=== PATIENT | male | born 1945 ===

== ENCOUNTER 2024-12-28 09:53 | Emergency (ER) | payer MEDICAID, SELFPAY ==
--- NOTE | ~2024-12-28 | XR_ITS ---
EXAMINATION: XR WRIST, RIGHT CLINICAL INFORMATION: right wrist swelling and redness COMPARISON: None available. TECHNIQUE: PA, lateral, oblique, and scaphoid views of the right wrist. FINDINGS: There are marginal osteophytes involving the first, second, and third MCP joints. There is no joint diastases. No fracture is evident. There is mild ulnar minus variance. XR/XR wrist RT 2V IMPRESSION: Unremarkable right wrist. 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 Electronically signed by: Jose Corona MD 12/28/2024 10:58 AM EDT
[2024-12-28 10:15] VITALS: BP 197/87; PULSE 86; RESP 18; TEMP 36.8; O2SAT 97; BMI 29.6
--- NOTE | 2024-12-28 10:15 | ED.GENADULT ---
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 Woke with right wrist pain/swelling/redness this morning. No known injury or trauma. Does have a small abrasion to right elbow which he reports happened >1 week ago. Denies fevers, chills, numbness, tingling, vomiting or diarrhea. Related Data Previous Rx's ?Medication ?Instructions ?Recorded cephalexin 500 mg capsule 500 mg PO BID #14 caps 12/28/24 prednisone 20 mg tablet 40 mg (2 x 20 mg) PO DAILY #10 tabs 12/28/24 Allergies Allergy/AdvReac Type Severity Reaction Status Date / Time No Known Allergies Allergy Verified 12/28/24 10:17 Review of Systems Review of Systems: Yes all other systems are reviewed and are negative Constitutional: Constitutional: Reports no additional constitutional complaints, Reports body ache(s), Denies chills, Denies fever(s), Denies headache(s) and Denies weakness Eyes: Eyes: Reports no additional eye complaints and Denies change in vision ENT: Reports system reviewed and no additional complaints, except as documented, Denies dizziness, Denies headache(s), Denies nasal congestion, Denies nasal discharge and Denies neck pain Cardiovascular: Cardiovascular: Reports no additional cardiovascular complaints, Denies chest pain, Denies leg edema and Denies dyspnea Respiratory: Respiratory: Reports no additional respiratory complaints, Denies cough and Denies dyspnea Gastrointestinal: Gastrointestinal: Reports no additional gastrointestinal complaints, Denies abdominal pain, Denies diarrhea, Denies nausea and Denies vomiting Genitourinary: Genitourinary: Denies urinary incontinence Musculoskeletal: Musculoskeletal: Reports no additional musculoskeletal complaints, Denies back pain, Reports arthralgias, Reports joint swelling, Denies limited range of motion, Denies neck pain, Denies numbness and Denies tingling Integumentary/Breasts: Skin/Breast: Reports system reviewed and no additional complaints, except as docu, Reports swelling, Reports erythema and Denies rash Neurologic: Reports system reviewed and no additional complaints, except as documented, Denies Abnormal speech present, Denies dizziness, Denies headache(s), Denies numbness, Denies tingling and Denies weakness [facility] Past Medical History Attestation statement: The following information was validated with the patient. Source: old records reviewed and nursing notes reviewed Physical Exam ED Vital Signs: Vital Signs - 24 hr 12/28/24 10:15 Temperature 98.2 F Pulse Rate 86 Respiratory Rate 18 Blood Pressure 197/87 H Pulse Oximetry 97 Oxygen Delivery Method Room Air BMI result Body Mass Index 29.6 Const General: cooperative, healthy appearing, comfortable and no acute distress Orientation/consciousness: patient oriented x3 Limitations: no limitations HENMT Head: Yes normal to inspection Ears: hearing grossly normal bilaterally General nose exam: Normal external nose present Face and sinus: Yes normal facial exam Mouth: Normal oral and palatal mucosa present Throat: Yes posterior oropharynx normal Eyes General: appearance normal, both eyes and all related structures Pupils: Equal, round and reactive pupils present Neck Neck: Yes normal visual inspection Chest Chest palpation & inspection: normal inspection of the chest Resp Effort & Inspection: normal respiratory effort Auscultation: clear to auscultation bilaterally Cardio Rate: regular rate Rhythm: regular rhythm Peripheral pulses: Peripheral pulses 2+ throughout GI Inspection: Yes normal to inspection Palpation (GI): Soft to palpation and nontender Auscultation: normal bowel sounds Back/Spine/Pelvis Thoracic/Lumbar Spine: thoracic and lumbar spine normal to inspection Skin General skin exam: no rashes or lesions noted Neuro General: patient oriented x3, no focal motor deficits and normal sensation to monofilament Cranial nerves: Yes Equal, round and reactive pupils present Cognition (Neuro): normal cognition Speech: No Abnormal speech present Gait exam (Neuro): Normal gait present Motor exam (neuro): 5/5 motor strength present throughout Extrem Other: FROM of the right wrist. No circumferential redness or swelling. small abrasion to right lateral elbow. CMS intact distally. Right knee normal appearance. No swelling or redness with FROM. General: Yes normal to inspection Course Course Course Narrative: Patrizia Duvall APRN 12/28/24 This is a rapid medical exam. Deferred additional HPI, ROS, PE to primary provider. 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 Traveled from [place] that day. Woke with right wrist pain/swelling this morning. No known injury or trauma. Will obtain labs, x-ray of right wrist, viral testing. VSS Medical Decision Making Medical Decision Making MDM Narrative: 79 yo male who is right hand dominant with PMH of HLD, hypothyroidism, HTN, vitamin D deficiency, arthritis here with complaints of muscle aches since , right knee pain (chronic for months, taking diclofenac BID). Woke with right wrist pain/swelling/redness this morning. No known injury or trauma. Does have a small abrasion to right elbow which he reports happened >1 week ago. Denies fevers, chills, numbness, tingling, vomiting or diarrhea. See PE for exam findings. I doubt the patient has a septic joint based on his clinical exam with good ROM, no fever or leukocytotis. His x-ray does show an underlying inflammatory process likely osteoarthritis. He does also small abrasion on the elbow and so he may have some mild cellulitis. There is no circumferential cellulitis or concern for deeper space infection or abscess or neck fascia or compartment syndrome. His uric acid is negative so I doubt he has gout. He has no significant swelling or concern for upper extremity DVT. I will discharge him home with cephalexin for 7 days and prednisone for 5 days with recommendations to have for him continue his diclofenac. He should take all his medications with food. He should elevate the extremity and use warm compresses. He does return to [place] on Tuesday and I recommend that he follow up outpatient with his primary care doctor as needed. Reviewed worrisome signs symptoms of when to return to the emergency room. Comfortable plan for discharge home. Differential Diagnosis Differential Diagnoses: The differential diagnosis associated with the presentation includes Low suspicion for septic arthritis with FROM of the joint Low suspicion for DVT based on clinical exam Low suspicion for compartment syndrome, deeper spaced infection or abscess, nec fasc Low suspician for gout Admission/Observation Consideration of admission/observation: Escalation of care including admission/observation considered see above Lab Data MDM Lab Attestation statement: I reviewed the patient's lab results. 12/28/24 10:33 12/28/24 10:33 Labs: Lab Results 12/28/24 12/28/24 Range/Units 10:30 10:33 WBC 9.8 (4.8-10.8) X10*3/uL RBC 4.76 (4.60-5.80) X10*6/uL Hgb 13.0 L (14.0-18.0) g/dl Hct 40.6 L (42.0-52.0) % MCV 85.3 (80.0-98.0) fL MCH 27.3 (27.0-33.0) pg MCHC 32.0 (31.0-36.0) g/dl RDW 13.2 (11.0-16.0) % Plt Count 321 (160-400) X10*3/uL MPV 10.2 (9.4-12.4) fL Immature Gran % (Auto) 1.0 H (0.0-0.4) % Neut % (Auto) 68.1 (45-73) % Lymph % (Auto) 15.6 L (20-40) % [place] % (Auto) 11.0 (2-11) % Eos % (Auto) 3.6 (0-4) % Baso % (Auto) 0.7 (0-2) % Lymph # (Auto) 1.5 (1.2-4.9) X10*3/uL [place] # (Auto) 1.1 (0.1-1.2) X10*3/uL Eos # (Auto) 0.4 (0.0-0.4) X10*3/uL Baso # (Auto) 0.1 (0.0-0.2) X10*3/uL Abs Immat Gran (auto) 0.10 H (0.00-0.03) X10*3/uL Absolute Neuts (auto) 6.7 (2.0-8.3) x10*3/uL Absolute Nucleated RBC 0.000 (0.0-0.012) X10*3/uL Nucleated RBC % (auto) 0.0 (0.0-0.2) /100WBC Sodium 141 (135-145) mmol/L Potassium 4.4 (3.3-5.1) mmol/L Chloride 107 (96-108) mmol/L Carbon Dioxide 26 (22-29) mmol/L Anion Gap 12 (12-20) BUN 17 H (9-16) mg/dL Creatinine 1.01 (0.5-1.4) mg/dL Estim Creat Clear Calc 67.9 Estimated GFR > 60 Random Glucose 179 H (60-115) mg/dL Uric Acid 4.9 (3.4-7.0) mg/dL Calcium 9.1 (8.4-10.2) mg/dL Total Bilirubin 0.6 (0.0-1.0) mg/dL Direct Bilirubin 0.3 (0.0-0.5) mg/dL AST 83 H (5-37) U/L ALT 123 H (0-40) U/L Alkaline Phosphatase 67 (39-117) U/L C-Reactive Protein 11.31 H (< or = 0.50) mg/dL Total Protein 7.7 (6.5-8.0) g/dL Albumin 3.9 (3.5-5.0) g/dL COVID-19 (ABIGAIL) Negative (Negative) COVID-19 Clin Com See Note Influenza Type A (SAMSON) Negative (Negative) Influenza Type B (SAMSON) Negative (Negative) Influenza A & B Note See Note Independent Interpretation I performed an independent interpretation of an: Plain X-Ray Interpretation: I independently reviewed the x-ray and agree with the rad report. Radiology Impression Discussion of test interpretation with radiology: I have reviewed the radiologist's reading. Radiologist Impression: [place] [id number] XRay Report Signed Patient: Arya Cobb MR#: [id number] : 1945 Acct:[id number] Age/Sex: 79 / M ADM Date: 12/28/24 Loc: .ED Attending Dr: Ordering Physician: Patrizia Duvall NP Date of Service: 12/28/24 Procedure(s): XR wrist RT 2V Accession Number(s): [id number] cc: Patrizia Duvall NP; Physician,Unknown ~ Reason for Exam: right wrist swelling and redness EXAMINATION: XR WRIST, RIGHT CLINICAL INFORMATION: right wrist swelling and redness COMPARISON: None available. TECHNIQUE: PA, lateral, oblique, and scaphoid views of the right wrist. FINDINGS: There are marginal osteophytes involving the first, second, and third MCP joints. There is no joint diastases. No fracture is evident. There is mild ulnar minus variance. XR/XR wrist RT 2V IMPRESSION: Unremarkable right wrist. 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 Electronically signed by: Jose Corona MD 12/28/2024 10:58 AM EDT Independent Historian Clinical information obtained from an independent historian. History obtained from or confirmed by: Spouse Prescription Management I considered prescription management with: Pain Medication Chronic Conditions Patient?s care impacted by: Hypertension Discharge Plan Discharge Clinical Impression: Cellulitis Patient Disposition: Home, Self-Care Instructions: Cellulitis (ED), Warm Compress or Soak (ED) Additional Instructions: Take all medications with food Elevate the extremity Return to the emergency department for increasing redness, swelling, nunbness, tingling or fever >100.4 Follow-up with your providers in [place] Prescriptions: New cephalexin 500 mg capsule 500 mg PO BID Qty: 14 0RF prednisone 20 mg tablet 40 mg PO DAILY Qty: 10 0RF Referrals: Physician,Unknown J [Primary Care Provider, Medical]
[2024-12-28 10:38] LABS: MANUAL DIFF FLAG NO
[2024-12-28 10:40] LABS: Hematocrit 40.6 % (42.0-52.0); Hemoglobin 13.0 g/dl (14.0-18.0); Imm Gran Abs Auto 0.10 X10*3/uL (0.00-0.03); Imm Gran Pct Auto 1.0 % (0.0-0.4); Lymphocytes Absolute Auto 1.5 X10*3/uL (1.2-4.9); Mean Corpuscular HGB Conc 32.0 g/dl (31.0-36.0); Mean Corpuscular Hemoglobin 27.3 pg (27.0-33.0); Mean Corpuscular Volume 85.3 fL (80.0-98.0); NRBC Abs Auto 0.000 X10*3/uL (0.0-0.012); NRBC Pct Auto 0.0 /100WBC (0.0-0.2); Platelet Count 321 X10*3/uL (160-400); Red Blood Count 4.76 X10*6/uL (4.60-5.80); White Blood Count 9.8 X10*3/uL (4.8-10.8)
[2024-12-28 10:55] LABS: COVID-19 Test Negative (Negative); IDNOW Serial# 6674DD1D
[2024-12-28 10:56] LABS: IDNOW Serial# 08D9AD1C; Influenza B2 Negative (Negative)
[2024-12-28 10:59] LABS: Alanine Aminotransferase 123 U/L (0-40); Albumin Level 3.9 g/dL (3.5-5.0); Alkaline Phosphatase 67 U/L (39-117); Anion Gap 12 (12-20); Aspartate Amino Transferase 83 U/L (5-37); Blood Urea Nitrogen 17 mg/dL (9-16); Calcium 9.1 mg/dL (8.4-10.2); Carbon Dioxide 26 mmol/L (22-29); Chloride 107 mmol/L (96-108); Creatinine Clr Calc Pharmacy 67.9; Estimated Glomerular Filt Rate > 60; Potassium 4.4 mmol/L (3.3-5.1); Sodium 141 mmol/L (135-145); Total Protein 7.7 g/dL (6.5-8.0); Uric Acid 4.9 mg/dL (3.4-7.0)
[2024-12-28 13:10] VITALS: BP 197/87; PULSE 86; RESP 18; TEMP 36.8; O2SAT 97
== END 2024-12-28 13:11 | disposition home or self-care (01) ==
LOC: HO.ED 12:36
PROVIDERS: Nurse Practitioner Family; Emergency Provider Emergency Medicine
DX: L03.113 Cellulitis of right upper limb (principal); M79.10 Myalgia, unspecified site; R60.0 Localized edema; M25.531 Pain in right wrist; Z11.52 Encounter for screening for COVID-19; Z79.899 Other long term (current) drug therapy
CPT/HCPCS: 36415; 73100; 80048; 80076; 84550; 85025; 86140; 87502; 87635; 99282; 99283

== ENCOUNTER → 2024-12-28 10:20 | Outpatient (BNV) | payer MEDICARE, SELFPAY | PROVIDERS: Emergency Provider Emergency Medicine; Visit Provider Radiology Diagnostic Radiology | DX: M19.041 Primary osteoarthritis, right hand (principal) | CPT/HCPCS: 73100 ==